=== PATIENT | female | born 2000 | race Hispanic/Latino ===

== ENCOUNTER 2022-07-19 05:35 | Day surgery (SDC) | payer OTHER ==
[~2022-07-19] VITALS: Wt 31.8 kg
[~2022-07-19 05:35] MED LIST: BISACODYL10 MG PR; LEVETIRACE100 MG/1 M PO; POLYETHYLENE G500 G2 MISC; SENNA8.8 MG/5 M
--- NOTE | 2022-07-19 08:52 | NUR ---
07/19/22 0852 Anna Fleming 0845 PATIENT ARRIVES TO PACU SLEEPING. DOES NOT AWAKEN WITH VERBAL STIMULI. RESP EVEN AND UNLABORED, MASK AT 6 LITERS.
--- NOTE | 2022-07-19 09:24 | NUR ---
09 PT RETURNED TO ROOM SISTER INTERPRETING TO MOM. MOM TALKING WITH TP.
--- NOTE | 2022-07-19 09:50 | NUR ---
0950-FAMILY IS REQUESTION TYLENOL. PATIENT IS OCCASIOANLLY CRYING AND THIS INDICATES PAIN PER FAMILY. 0955-VO PER DR AGGARWAL FOR PO TYLENOL. PHARMACY WILL PUT IN ORDER. 1000-PATIENT WILL NOT OPEN MOUTH FOR MEDICATION. FAMILY WILL GIVE MEDICATION WHEN THEY GO HOME.
--- NOTE | 2022-07-19 10:33 | NUR ---
1010-VSS. PATIENT GETTING DRESSED AND READY TO GO HOME.
--- NOTE | 2022-07-19 10:33 | NUR ---
1022-DISCHARGE INSTRUCITONS GIVEN TO FAMILY. PATIENT'S SISTER INTERPRETS FOR FAMILY. NO QUESTIONS OR OTHER NEEDS AT THIS TIME. PATIENT LEAVES DAY SURGERY IN PERSONAL WHEELCHAIR PUSHED BY FAMILY.
== END 2022-07-19 10:20 | disposition home or self-care (01) ==
LOC: DS 05:35 → OPS 05:35 → DS 07:00 → OPS 10:20
PROVIDERS: ATTEND Dentist General Practice
DX: K05.6 Periodontal disease, unspecified (principal); H61.21 Impacted cerumen, right ear; G80.0 Spastic quadriplegic cerebral palsy
CPT/HCPCS: 36415; 80053; 84703; 85025; J0131; J1100; J2001; J2405; J2704; J3010; J7121